=== PATIENT | female | born 1985 | race African-American/Black ===

== ENCOUNTER 2019-04-24 10:51 | Emergency (ER) | payer OTHER ==
[~2019-04-24] VITALS: Ht 154.9 cm; Wt 85.3 kg
[2019-04-24] MEDS ORDERED: LEVOXYL112 MCG PO (11:21)
== END 2019-04-24 13:38 | disposition home or self-care (01) ==
LOC: ER 10:51
DX: R21 Rash and other nonspecific skin eruption (principal); T78.49XA Other allergy, initial encounter; X58.XXXA Exposure to other specified factors, initial encounter